=== PATIENT | male | born 2000 | race Caucasian/White ===

== ENCOUNTER 2023-08-26 14:32 | Emergency (ER) | payer MEDICAID, SELFPAY ==
[2023-08-26 14:34] VITALS: BP 118/75; PULSE 123; RESP 98; TEMP 37.6; O2SAT 96
[2023-08-26] MEDS: Ibuprofen 600 MG TAB PO (15:00)
--- NOTE | 2023-08-26 15:04 | ED.GENADUL_ITS ---
Discharge Plan Disposition Patient Disposition: Home Condition: Stable Discharge Details Clinical Impression: Viral illness Primary Care Provider: Shoaib Cornejo ED Provider: Kamala Ruggiero Home Meds and New Rx's Prescriptions: No Action ondansetron HCl 4 mg tablet 4 mg PO TID PRN5 Days Qty: 15 0RF Discharge Instructions Instructions: Acute Nausea and Vomiting (ED), Viral Syndrome (ED) Additional Instructions: Take the nausea medication as prescribed up to 3 times daily 20 minutes before eating or drinking anything. Keep yourself hydrated with small sips and push fl uids. Practice a bland diet including bananas rice apples toast. Stay away from anything fried fatty spicy or dairy. Strep swab was negative. At this time the COVID and flu swab are pending we will call you if they are positive. However usually symptoms treatment is the same. Please take Tylenol or Ibuprofen with food every 4-6 hours as needed for pain and swelling. Follow up with primary care provider in 3-5 days. Return to ED sooner if any worsening or concerns. Stand Alone Forms: Work Release Referrals: Shoaib Cornejo [Primary Care Provider] - 3 days Discharge Data Discharge Date/Time-TO BE ENTERED AT DEPARTURE: 08/26/23 15:59 HPI General Mode of arrival: ambulatory . Date/Time Provider Initiated Documentation: 08/26/23 14:33 . Limitations to Documentation: no limitations . Information obtained by: patient, RN notes reviewed and old records reviewed . HPI Narrative: 23-year-old male presents to the ER with a chief complaint of sore throat, lightheadedness headache and fever 100.9 and decreased appetite since Wednesday. He reports on Wednesday he threw up. Denies any diarrhea no abdominal pain reports body aches and back pain. Denies any dysuria. Has not taken any Tylenol or ibuprofen prior to arrival. He does present somewhat tachycardic with a pulse of 123. No significant past medical history. Related Data Home Medications Medication Instructions Recorded Confirmed ondansetron HCl 4 mg tablet 4 mg PO TID PRN 5 days #15 tabs 08/30/23 Previous Rx's Medication Instructions Recorded ondansetron HCl 4 mg tablet 4 mg PO TID PRN 5 days #15 tabs 08/30/23 Allergies Allergy/AdvReac Type Severity Reaction Status Date / Time No Known Allergies Allergy Unverified 08/30/23 18:02 General Stated Complaint: Nausea/Vomit/Diar MADONNA: 3 Review of Systems All systems reviewed & are unremarkable except as noted in HPI and below Constitutional Constitutional: Reports as per HPI, Reports body ache(s), Reports fever(s), Reports headache(s) and Reports poor appetite ENT Ears, Nose, Mouth, and Throat: Reports headache(s) Gastrointestinal Gastrointestinal: Denies abdominal pain, Reports nausea and Reports vomiting Neurologic Neurologic: Reports headache(s) Exam Narrative Exam Narrative: Constitutional: Alert and oriented x3. Appears stated age. Normal body habitus. Head: Normocephalic, no trauma. Eyes: Pupils PERRL, Red reflex noted, EOM's intact. Eyelids symmetrical without lesions, discharge, or swelling. ENT: Bilateral TM's WNL, External ear normal to inspection, no mastoid TTP, swelling, or erythema, Nasal turbinates WNL, no nasal discharge. Normal den tition, Posterior pharynx WNL, no exudate. Chest: RRR, Normal S1, S2, distal pulses intact. Resp: Lungs clear to auscultation bilaterally, no wheezes, rales, or rhonchi. Course Vital Signs Vital signs: Vital Signs Temperature 37.6 C 08/26/23 14:34 Pulse 123 H 08/26/23 14:34 Respiratory Rate 98 H 08/26/23 14:34 Blood Pressure 118/75 08/26/23 14:34 Pulse Oximetry 96 08/26/23 14:34 Temperature 37.6 C 08/26/23 14:34 Temperature Source Oral 08/26/23 14:34 Pulse 123 H 08/26/23 14:34 Respiratory Rate 98 H 08/26/23 14:34 Respiratory Effort Normal 08/26/23 14:39 Blood Pressure 118/75 08/26/23 14:34 Pulse Oximetry 96 08/26/23 14:34 Pain Level 5 08/26/23 14:34 Medical Decision Making 23-year-old male presents to the ER with a chief complaint of sore throat, lightheadedness headache and fever 100.9 and decreased appetite since Wednesday. He reports on Wednesday he threw up. Denies any diarrhea no abdominal pain reports body aches and back pain. Denies any dysuria. Has not taken any Tylenol or ibuprofen prior to arrival. He does present somewhat tachycardic with a pulse of 123. No significant past medical history. COVID swab and strep swab ordered. Ibuprofen and 4 mg Zofran ODT. Strep negative. Fluvid swab positive for influenza B. Instructed on symptomatic treatment. This text was generated using [employer] dictation system, please disregard any oddities of phrase or misspellings. Lab Data Lab results reviewed: Yes I reviewed the patient's lab results. Labs: 08/26/23 14:57 Pharynx Group A Streptococcus Culture - Final Laboratory Tests Range/Units 08/26/23 14:51 COVID-19 Source NASOPHARYNX SARS-CoV-2 (PCR) (Negative) Negative Influenza Type A (PCR) (Negative) Negative Influenza Type B (PCR) (Negative) Positive A RSV (PCR) (Negative) Negative Quality:SDOH Health Related Social Needs: No Data to Display PFSH All Active Problems (Updated 08/30/23 @ 21:02 by SALOME Marcus) Viral illness (Acute) Social History Smoking risk assessment performed?: No
[2023-08-26] MEDS: Ondansetron O.D.T. 4 MG TABEF PO (15:12)
[2023-08-26 15:50] LABS: COVID-19 PCR Negative (Negative); Influenza A PCR Negative (Negative); Influenza B PCR Positive (Negative); RSV PCR Negative (Negative)
[2023-08-26 15:51] LABS: Source NASOPHARYNX
[2023-08-26] MEDS: Ondansetron O.D.T. 4 MG TABEF, 3 TABS/BTL PO (15:57)
== END 2023-08-26 15:59 | disposition home or self-care (01) ==
PROVIDERS: Emergency Provider Registered Nurse Emergency; PCP Family Medicine
DX: B34.9 Viral infection, unspecified (principal); Z11.52 Encounter for screening for COVID-19
CPT/HCPCS: 87637; 87880; 99283; 87081

== ENCOUNTER 2023-08-30 17:56 | Emergency (ER) | payer MEDICAID, SELFPAY ==
[2023-08-30] VITALS (52 sets, daily range): BP systolic 100–118; BP diastolic 60–78; PULSE 86–110; RESP 7–37; TEMP 37.1–37.4; O2SAT 95–96
--- NOTE | 2023-08-30 17:45 | RT.EKG_ITS ---
APPROVED REPORT Exam: Resting ECG Reason for Exam: dizziness Patient Location: E HR:102 bpm ECG Measurements Heart Rate 102 AXIS WI 141 P 79 QRSd 83 QRS 41 QT 315 T 76 QTc 411 Conclusion Sinus tachycardia at a rate of 102 without acute ischemic change.
--- NOTE | 2023-08-30 18:27 | ED.GENADUL_ITS ---
Discharge Plan Disposition Patient Disposition: Home Discharge Details Clinical Impression: Viral illness Primary Care Provider: Shoaib Cornejo ED Provider: Joselin Ferrell Home Meds and New Rx's Prescriptions: New ondansetron HCl 4 mg tablet 4 mg PO TID PRN5 Days Qty: 15 0RF Discharge Instructions Instructions: Viral Syndrome (ED) Additional Instructions: By kids chewable Tylenol and ibuprofen and take 600 mg of ibuprofen and 500 mg of Tylenol, ibuprofen every 8 hours and Tylenol every 4 hours I recommend staying home from work until you are fever free for 24 hours You may take Zofran as needed for nausea and vomiting and return earlier should you have new or worsening complaints Stand Alone Forms: Work Release Referrals: Shoaib Cornejo [Primary Care Provider] - Discharge Data Discharge Date/Time-TO BE ENTERED AT DEPARTURE: 08/30/23 21:25 HPI General Date/Time Provider Initiated Documentation: 08/30/23 17:57 . HPI Narrative: This 23-year-old male presents with report of recent diagnosis of influenza on the , sick since Wednesday of this week. Now feeling like he might pass out whenever he stands and sore throat with lightheadedness. Denies any chest pain or shortness of breath. Related Data Home Medications Medication Instructions Recorded Confirmed ondansetron HCl 4 mg tablet 4 mg PO TID PRN 5 days #15 tabs 08/30/23 Previous Rx's Medication Instructions Recorded ondansetron HCl 4 mg tablet 4 mg PO TID PRN 5 days #15 tabs 08/30/23 Allergies Allergy/AdvReac Type Severity Reaction Status Date / Time No Known Allergies Allergy Unverified 08/30/23 18:02 General Stated Complaint: GenMedical MADONNA: 3 Exam Const General: cooperative, comfortable and no acute distress HENMT Other: Moist mucous membranes, uvula midline, oropharynx patent Eyes Other: Pupils equal round reactive to light and accommodation Neck Other: No meningismus Cardio Other: Sinus tachycardia GI Other: Nontender abdominal exam Skin Other: No rashes or lesions Neuro Other: Alert and oriented x 4 Course Vital Signs Vital signs: Vital Signs Temperature 37.2 C 08/30/23 17:59 Pulse 110 H 08/30/23 17:59 Respiratory Rate 18 08/30/23 17:59 Blood Pressure 118/78 08/30/23 17:59 Pulse Oximetry 96 08/30/23 17:59 Temperature 37.2 C 08/30/23 17:59 Pulse 110 H 08/30/23 17:59 Respiratory Rate 18 08/30/23 17:59 Blood Pressure 118/78 08/30/23 17:59 Pulse Oximetry 96 08/30/23 17:59 Medical Decision Making This 23-year-old male presenting with nausea, presyncopal symptoms, and sore throat for the past several days. Was diagnosed with influenza on the and tried to go into work today per patient. Alert and oriented with stable vitals other temp is 102 as patient does not tolerate pills and so has not been taking ibuprofen and Tylenol at home. On exam, patient is in no acute distress but appears generally unwell. Will order some diagnostic labs, review does not show evidence of acute abnormality. Will start ibuprofen and Tylenol and give 1 L of IV fluids and likely discharge home and encouraged to use chewable ibuprofen and Tylenol tablets with a work note. Quality:SDOH Health Related Social Needs: No Data to Display PFSH All Active Problems (Updated 08/30/23 @ 21:02 by SALOME Marcus) Viral illness (Acute) Social History Smoking risk assessment performed?: No
[2023-08-30] MEDS: Normal Saline 1,000 ML 1000 ML IV (18:41)
[2023-08-30] MEDS: Ketorolac 15 MG/ML VIAL IVP (18:42)
[2023-08-30 18:51] LABS: Abs Immature Grans 0.02 10^3/uL (0.0-0.06); HCT 41.6 % (40.0-50.0); HGB 14.8 g/dL (13.5-17.5); MCH 29.8 pg (27.0-33.0); MCHC 35.6 % (32.0-36.0); MCV 84 fL (80-95); MPV 9.7 fL (8.0-11.0); RBC 4.96 10^6/uL (4.36-5.78); RDW 11.9 % (11.8-14.1); RDW-SD 36.6 fL; WBC 4.29 10^3/uL (4.4-10.8)
[2023-08-30] MEDS: ACETAMINOPHEN 1,000 MG/100 ML BTL 400 MG IVPB (18:52)
[2023-08-30 19:02] LABS: Anion Gap 7.1 mmol/L (3-11); BUN 16 mg/dL (7-18); CO2 30.9 mmol/L (21.0-32.0); Calcium 8.3 mg/dL (8.5-10.1); Chloride 98 mmol/L (98-107); Estimated GFR 109.13 (mL/min/1.73m2); Glucose 102 mg/dL (74-106); Magnesium 2.1 mg/dL (1.8-2.4); Potassium 4.4 mmol/L (3.5-5.1); Sodium 136 mmol/L (136-145)
[2023-08-30 19:08] LABS: Platelet Count 107 10^3/uL (130-400)
[2023-08-30 19:09] LABS: Absolute Lymphocyte Count 1.03 10^3/uL (1.2-3.4); Absolute Monocyte Count 0.51 10^3/uL (0.1-0.8); Absolute Neutrophil Count 2.75 10^3/uL (1.2-6.7); Atypical Lymphocytes % 5; Diff Comment Manual Differential; RBC Morphology Normal
== END 2023-08-30 21:25 | disposition home or self-care (01) ==
PROVIDERS: Emergency Provider Physician Assistant; PCP Family Medicine
DX: B34.9 Viral infection, unspecified (principal)
CPT/HCPCS: 36415; 80048; 93005; 96361; 96365; 96375; 99284; 83735; 85025; 93010; J0131; J1885

== ENCOUNTER 2024-06-04 15:35 | Emergency (ER) | payer BC, SELFPAY ==
[2024-06-04 15:44] VITALS: BP 122/75; PULSE 88; RESP 14; TEMP 36.9; O2SAT 98
--- NOTE | 2024-06-04 16:00 | DI.RAD_ITS ---
Exam(s) XR SHOULDER LT COMPLETE 2+V EXAM: XR SHOULDER LT COMPLETE 2+V CLINICAL HISTORY: L shoulder pain along AC joint. TECHNIQUE: 2D digital imaging was performed. COMPARISON: No exams were available for comparison FINDINGS: Four views. No evidence of fracture or dislocation of the humeral head/glenohumeral joint. The subacromial space is not diminished. However, there is slight offset of the AC joint noted. There is no fracture of the acromium nor of the clavicle. IMPRESSION: Mild subluxation of the AC joint. Correlation with site of tenderness is recommended. No clavicle f racture. Glenohumeral joint appears unremarkable. DATA REPOSITORY: RADIATION DOSE DELIVERED:
--- NOTE | 2024-06-04 16:11 | ED.GENADUL_ITS ---
Discharge Plan Disposition Patient Disposition: Home Discharge Details Clinical Impression: Separation of left acromioclavicular joint Primary Care Provider: Francois José ED Provider: Mandi Burt Home Meds and New Rx's Prescriptions: No Action No Known Home Meds Discharge Instructions Instructions: shoulder Additional Instructions: Please call orthopedics Wednesday to schedule a follow up appointment for management of your AC joint separation. Wear your sling at all times when not in bed. Use ice for 15-20 minutes at a time every hour or so for swelling. Ibuprofen 600 mg every 8 hours or tylenol 650 mg every 6 hours may be used for discomfort as needed. Return to emergency care if you develop new arm numbness, color change to your arm/hand, severe pain, or if you aer very worried and need to be rechecked again immediately. Stand Alone Forms: Work Release Referrals: [facility] [Provider Group] HPI General Date/Time Provider Initiated Documentation: 06/04/24 15:55 . HPI Narrative: Zhang is a 24 y/o male who presents to the ED todday for evaluation of L shoulder pain. He reports he fell and landed on his L shoulder yesterday while snowboarding, has had consistent discomfort in the shoulder since then that is worsened with movement.He was wearing a helmet. Denies head injury, neck pain, back pain, chest pain, shortness of breath, distal numbness/tingling or weakness. No previous injury to this shoulder. He is R handed. Denies significant PMH. Physical exam remarkable for tenderness with palpation of AC joint. No obvious deformities, skin tears, ecchymosis, swelling. Pt is able to full flex and extend shoulder, negative empty can test. Sensation grossly intact, 5/5 muscle strength to arm. No color change to arm. Full painless ROM to neck. NO c-spine/t-spine/l-spine stepoffs, tenderness, or deformity. D/dx includes but is not limited to: AC joint separation, soft tissue injury, labral tear. Low suspicion for fracture or dislocation. I independently interpreted the following tests: L shoulder xray, notable for mild AC joint separation. This was confirmed by radiologist. While in the ED Zhang received ice for discomfort, declined ibuprofen or APAP. A sling was applied for immobilization. Reviewed discharge instructions with patient and his mother; a work note was provided. Educated on red flags indicating need for return to emergency care, light duty at work, abstaining from snowboarding until cleared by ortho. HE voices agreement with plan of care. Related Data Home Medications ?Medication ?Instructions ?Recorded ?Confirmed Unknown [No Known Home Meds] 10/07/23 06/04/24 Allergies Allergy/AdvReac Type Severity Reaction Status Date / Time No Known Allergies Allergy Unverified 06/04/24 15:49 General Stated Complaint: Orthopedic MADONNA: 4 Review of Systems Narrative: see HPI Exam Const General: cooperative, healthy appearing, comfortable, no acute distress, well developed and well groomed Nutritional Appearance: average body habitus and well nourished Orientation: alert and oriented x3 HENMT Head: normal to inspection, normocephalic and atraumatic Neck Neck: normal visual inspection and full ROM Chest Chest: normal inspection of the chest and normal palpation of entire chest wall Resp Effort & Inspection: normal respiratory effort and able to speak in complete sentences Auscultation: clear to auscultation bilaterally Cardio Rate: regular rate Rhythm: regular rhythm Pulses: radial pulses present Back/Spine/Pelvis Cervical Spine: normal cervical lordosis and cervical ROM normal Thoracic/Lumbar Spine: thoracic and lumbar spine normal to inspection Skin General skin exam: no rashes or lesions noted Neuro General: patient alert, patient oriented x3, gait normal, tone normal, moves all extremities and no focal motor deficits Cognition: normal cognition Speech: speech normal Sensory Exam: no sensory deficits noted Extrem Right upper extremity: normal to inspection Left upper extremity: normal to inspection, normal capillary refill and shoulder/upper arm Details: tenderness Location: of the A-C joint, axillary nerve sensory function normal and abnormal ROM (slightly decreased due to discomfort); no swelling, no abrasions, no lacerations, no ecchymosis, no crepitus, no penetrating wound, no deformity and no unsual warmth; no edema Course Vital Signs Vital signs: Vital Signs Temperature 36.9 C 06/04/24 15:44 Pulse 88 06/04/24 15:44 Respiratory Rate 14 06/04/24 15:44 Blood Pressure 122/75 06/04/24 15:44 Pulse Oximetry 98 06/04/24 15:44 Temperature 36.9 C 06/04/24 15:44 Temperature Source Oral 06/04/24 15:44 Pulse 88 06/04/24 15:44 Respiratory Rate 14 06/04/24 15:44 Blood Pressure 122/75 06/04/24 15:44 Blood Pressure Position Sitting 06/04/24 15:44 Pulse Oximetry 98 06/04/24 15:44 Oxygen Delivery Method Room Air 06/04/24 15:44 Oxygen Flow Rate 0 06/04/24 15:44 Pain Level 10 06/04/24 15:54 Comment Pain = 10 w/ movement per pt 06/04/24 15:44 Medical Decision Making Imaging Data Radiologic Study: Radiologist's impression: Exam(s) XR SHOULDER LT COMPLETE 2+V EXAM: XR SHOULDER LT COMPLETE 2+V CLINICAL HISTORY: L shoulder pain along AC joint. TECHNIQUE: 2D digital imaging was performed. COMPARISON: No exams were available for comparison FINDINGS: Four views. No evidence of fracture or dislocation of the humeral head/glenohumeral joint. The subacromial space is not diminished. However, there is slight offset of the AC joint noted. There is no fracture of the acromium nor of the clavicle. IMPRESSION: Mild subluxation of the AC joint. Correlation with site of tenderness is recommended. No clavicle fracture. Glenohumeral joint appears unremarkable. Quality:SDOH Health Related Social Needs: No Data to Display PFSH All Active Problems (Updated 06/04/24 @ 16:49 by Mandi Isbell) Separation of left acromioclavicular joint (Acute) No known health problems (Acute) Family History (Updated 09/17/23 @ 14:59 by Letty Roe RN) Mother Depression Father No problems noted. Maternal Grandmother Asthma Colon cancer Paternal Grandmother Asthma Social History (Updated 10/21/23 @ 15:44 by Roopa Anderson) Smoking/Tobacco Use Status: Never Smoking risk assessment performed?: Yes Alcohol Intake: never Drug use: Never Substance use type: does not use Adopted: No Caregiver/Support person: No Housing: house Communication Needs: None Education Level: high school Do you need help understanding health information?: Often current occupation: Op C at [employer] Sexually active: No Do you think of yourself as: straight/heterosexual Current gender identity: male What is your relationship status?: never How often do you talk on the phone with friends or family?: three or more times per week How often do you get together with friends or relatives?: once per week How often do you attend bahai or jehovah's witness services?: decline to answer Do you belong to any clubs or organized social groups?: no Panel score (0-1 are the most socially isolated patients): 1 What type of physical activity do you participate in: none Frequency: does not exercise Lia/Rastafari: None Special lia needs: No Seatbelt use: always Helmet use: Yes Helmet use: always Drive intox or ride w/intox truss driver helper: No Firearms in home: Yes Firearms unloaded and locked: Yes Do you feel safe at home: Yes
== END 2024-06-04 17:03 | disposition home or self-care (01) ==
PROVIDERS: Emergency Provider Nurse Practitioner Family; PCP Nurse Practitioner Family
DX: S43.102A Unspecified dislocation of left acromioclavicular joint, initial encounter (principal); W00.0XXA Fall on same level due to ice and snow, initial encounter; Y93.23 Activity, snow (alpine) (downhill) skiing, snowboarding, sledding, tobogganing and snow tubing
CPT/HCPCS: 99283; 73030

== ENCOUNTER 2024-06-20 15:25 | Outpatient (CLI) | payer BC, SELFPAY ==
--- NOTE | 2024-06-20 09:45 | DI.RAD_ITS ---
Exam(s) XR CLAVICLE LT EXAM: XR CLAVICLE LT CLINICAL HISTORY: F/U ACJ SEPARATION TECHNIQUE: 2D digital imaging was performed. Two views COMPARISON: CR XR SHOULDER LT COMPLETE 2+V from 06/04/2024 FINDINGS: BONES: No acute fracture is present. No bony destructive lesion is seen. JOINTS: AC joint is mildly widened. The distal clavicle projects slightly superior to the acromion. Similar to prior exam. SOFT TISSUE: Unremarkable. IMPRESSION: Stable widening of the AC joint. DATA REPOSITORY: RADIATION DOSE DELIVERED:
== END 2024-06-20 15:26 | disposition home or self-care (01) ==
LOC: DIORS 15:26
PROVIDERS: PCP Nurse Practitioner Family; Visit Provider Student in an Organized Health Care Education/Training Program
DX: S43.102D Unspecified dislocation of left acromioclavicular joint, subsequent encounter (principal); X58.XXXD Exposure to other specified factors, subsequent encounter
CPT/HCPCS: 73000

== ENCOUNTER 2024-08-15 11:22 | Outpatient (CLI) | payer BC, SELFPAY ==
--- NOTE | 2024-08-15 09:15 | DI.RAD_ITS ---
Exam(s) XR CLAVICLE LT EXAM: XR CLAVICLE LT CLINICAL HISTORY: F/U ACJ SEPARATION TECHNIQUE: 2D digital imaging was performed. Two views COMPARISON: CR XR SHOULDER LT COMPLETE 2+V from 06/04/2024 CR XR CLAVICLE LT from 06/20/2024 FINDINGS: BONES: No acute fracture is present. No bony destructive lesion is seen. JOINTS: Slight widening of the AC joint, unchanged from prior. Glenohumeral joint is unremarkable as visualized. SOFT TISSUE: Linear calcification of visible beneath the distal clavicle. IMPRESSION: Stable mild widening of the AC joint. DATA REPOSITORY: RADIATION DOSE DELIVERED:
== END 2024-08-15 11:23 | disposition home or self-care (01) ==
LOC: DIORS 11:22
PROVIDERS: PCP Nurse Practitioner Family; Visit Provider Student in an Organized Health Care Education/Training Program
DX: S43.102D Unspecified dislocation of left acromioclavicular joint, subsequent encounter (principal); X58.XXXD Exposure to other specified factors, subsequent encounter
CPT/HCPCS: 73000

== ENCOUNTER 2024-11-14 09:06 | Outpatient (CLI) | payer BC, SELFPAY ==
--- NOTE | 2024-11-14 08:45 | DI.RAD_ITS ---
Exam(s) XR CLAVICLE LT EXAM: XR CLAVICLE LT CLINICAL HISTORY: F/U ACJ SEPARATION. TECHNIQUE: 2D digital imaging was performed. COMPARISON: CR XR CLAVICLE LT from 08/15/2024 FINDINGS: Two views There is no evidence of left clavicle fracture. The appearance of the AC joint is unchanged. Minimal offset. No prominent separation. IMPRESSION: Stable mild widening of the left AC joint which appears unchanged from 08/15/2024. DATA REPOSITORY: RADIATION DOSE DELIVERED:
== END 2024-11-14 09:07 | disposition home or self-care (01) ==
LOC: DIORS 09:06
PROVIDERS: PCP Nurse Practitioner Family; Visit Provider Student in an Organized Health Care Education/Training Program
DX: S43.102A Unspecified dislocation of left acromioclavicular joint, initial encounter (principal)
CPT/HCPCS: 73000

== ENCOUNTER 2025-01-26 13:57 | Emergency (ER) | payer BC, SELFPAY ==
[2025-01-26] VITALS (25 sets, daily range): BP systolic 102–130; BP diastolic 52–89; PULSE 60–107; RESP 11–22; O2SAT 94–98
--- NOTE | 2025-01-26 14:30 | RT.EKG_ITS ---
APPROVED REPORT Exam: Resting ECG Reason for Exam: Near-syncope Patient Location: E HR:68 bpm ECG Measurements Heart Rate 68 AXIS TN 148 P 69 QRSd 100 QRS 54 QT 383 T 68 QTc 408 Conclusion Sinus rhythm, rate 68 No interval abnormalities No STEMI, CUONG pattern given age and similar appearance to priors
--- NOTE | 2025-01-26 14:37 | ED.GENADUL_ITS ---
Discharge Plan Disposition Patient Disposition: Home Condition: Stable Discharge Details Clinical Impression: Shakiness, Lightheadedness Primary Care Provider: Francois José ED Provider: Thalia Paez Home Meds and New Rx's Prescriptions: No Action No Known Home Meds Discharge Instructions Instructions: Dizziness, Adult ED Additional Instructions: You were seen in the emergency department today for evaluation of a near fainting episode with shakiness/twitching. In our department a full physical examination performed, had a reassuring EKG and normal laboratory studies, including a negative COVID and influenza test. You received IV fluids and medications for discomfort, and were observed in the emergency department. Your symptoms improved somewhat, and your vital signs stayed quite reassuring. At this time, it is unclear exactly what caused your symptoms, though a number of emergency conditions have been effectively ruled out. You need to follow-up with your primary care provider, take all of your medications as prescribed, and certainly can always return to care especially if you develop a fever, change in mental status, etc. Please follow-up with your primary care provider in the next few days to discuss this visit and any symptoms that change, worsen, or persist. Thank you for allowing us to be part of your care. Stand Alone Forms: Work Release HPI General Mode of arrival: ambulatory . Date/Time Provider Initiated Documentation: 01/26/25 14:01 . Limitations to Documentation: no limitations . Information obtained by: patient, family and old records reviewed . HPI Narrative: This is a 24-year-old male patient, previously healthy, presenting for evaluation of shakes and general malaise and near syncope. The patient reports he was in his normal state of health until this afternoon, when he began to feel very shaky and like he was burning up. He states that he was walking out to his truck, and felt like he was going to pass out, with lightheadedness. He did not lose consciousness and the sensation has since passed. He has occasional twitching/shaking of his body, states that this has happened in the past, feels similar to a panic attack though he states he has not had any upsetting events or recent stressors. He ate some [place] food earlier today, nothing out of the ordinary for him. States that he has not had any recent sick contacts, denies fever, runny or stuffy nose, sore throat, cough. Has a few broken teeth for which he has not yet sought dental care. Endorses no abdominal pain, nausea or vomiting, diarrhea, urinary symptoms such as dysuria. Related Data Home Medications ?Medication ?Instructions ?Recorded ?Confirmed Unknown [No Known Home Meds] 10/07/23 0 01/26/25 Allergies Allergy/AdvReac Type Severity Reaction Status Date / Time No Known Allergies Allergy Unverified 01/26/25 14:11 General Stated Complaint: GenMedical MADONNA: 3 Exam Narrative Exam Narrative: Gen: Awake and alert, in no apparent distress HEENT: Non-icteric sclera, PERRL, no conjunctival injection. The right lower lid has a small stye, without evidence of surrounding superinfection. Bilateral TMs clear, posterior pharynx without erythema, exudate, or swelling. Poor dentition with broken teeth appreciated, 2 most notably on the left upper aspect without evidence of periapical abscess Neck: Supple, full range of motion without meningismus Lungs: No apparent respiratory distress, normal respiratory effort. Lung sounds clear and equal bilaterally without wheezes, rhonchi, rales CV: Appears well perfused, heart with regular rate and rhythm, no murmurs auscultated Abdomen: Non-distended, soft, nontender without rigidity, rebound, or guarding MSK: Moves 4 extremities without apparent limitation in ROM Skin: Visualized skin without rashes, cyanosis. Neuro: Normal Gait, no obvious focal deficits or facial asymmetry. Speaks in full, clear sentences. Occasional tremors/jerking motions bilaterally Psych: Appropriate for situation. Course Vital Signs Vital signs: Vital Signs Pulse 83 01/26/25 14:09 Blood Pressure 130/89 01/26/25 14:09 Pulse Oximetry 94 01/26/25 14:09 Pulse 83 01/26/25 14:12 Blood Pressure 130/89 01/26/25 14:12 Pulse Oximetry 94 01/26/25 14:12 Medical Decision Making This is a 24-year-old male patient presenting for evaluation of near syncope, general malaise and shakiness. Differential includes but is not limited to infectious etiologies including viral upper respiratory infection, no shortness of breath, cough, or hypoxia concerning for pneumonia or bronchitis. The patient's dentition does not appear to be actively infected and I think is a l ess likely source of his symptoms. No reported symptoms suggestive of gastroenteritis, urinary tract infection. I did consider metabolic and electrolyte derangements, anemia, dehydration, kidney and liver disease. Considered arrhythmia, orthostasis and vasovagal symptoms. Finally, considered carpopedal spasms and sequelae of hyperventilation/panic disorder. We will obtain an EKG, Fluvid, and labs to include CBC, CMP, magnesium, and urinalysis. I will provide the patient with a liter of IV fluids and Tylenol IV given his reported history of difficulty swallowing medicines. - EKG reviewed by myself, showing no evidence of ischemia, interval abnormality, or ectopy. The patient does have a benign early repull pattern which is appropriate for his age and has been demonstrated on prior EKGs. I independently interpreted the laboratory studies, which show no significant leukocytosis, anemia, or thrombocytopenia. The chemistry panel is without evidence of electrolyte abnormality, kidney dysfunction, or liver injury. TSH within normal limits, urinalysis noninfectious, COVID and influenza screen negative. I reevaluated the patient and we observed him in the emergency department for some time, he remained hemodynamically appropriate with no changes in his vital signs or development of tachycardia or fever. His symptoms subsided significantly, we had an extended discussion regarding stressors and panic symptoms though the patient is not able to pinpoint any specific inciting event and panic disorder is not something that he has been diagnosed with before. I discussed at length the results of his testing today, and given the lack of diagnostic clarity did recommend that he follow-up with his primary care provider in the next few days to discuss this visit and any symptoms that change, worsen, or persist. I do not see any indication to proceed with further workup in the emergency department at this time, given his reassuring exam and benign evaluation to date. At this time, the patient has had a full medical evaluation and is safe for discharge to home. They are hemodynamically stable, ambulatory, and tolerating PO. They are understanding of the follow-up plan and return precautions. They left our facility without incident. Thalia Paez MD Medical Records Medical records reviewed: Yes I reviewed the patient's medical records. Lab Data Lab results reviewed: Yes I reviewed the patient's lab results. [facility] All Active Problems (Updated 01/26/25 @ 17:16 by Thalia Paez MD) Lightheadedness (Acute) Shakiness (Acute) No known health problems (Acute) Family History (Updated 09/17/23 @ 14:59 by Letty Roe RN) Mother Depression Father No problems noted. Maternal Grandmother Asthma Colon cancer Paternal Grandmother Asthma Social History (Updated 10/21/23 @ 15:44 by Roopa Anderson) Smoking/Tobacco Use Status: Never Smoking risk assessment performed?: Yes Alcohol Intake: never Drug use: Never Substance use type: does not use Adopted: No Caregiver/Support person: No Housing: house Communication Needs: None Education Level: high school Do you need help understanding health information?: Often current occupation: Op C at [employer] Sexually active: No Do you think of yourself as: straight/heterosexual Current gender identity: male What is your relationship status?: never How often do you talk on the phone with friends or family?: three or more times per week How often do you get together with friends or relatives?: once per week How often do you attend synagogue or amish services?: decline to answer Do you belong to any clubs or organized social groups?: no Panel score (0-1 are the most socially isolated patients): 1 What type of physical activity do you participate in: none Frequency: does not exercise Lia/Jewish: None Special lia needs: No Seatbelt use: always Helmet use: Yes Helmet use: always 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
[2025-01-26 15:12] LABS: Glucose Negative (Negative)
[2025-01-26] MEDS: ACETAMINOPHEN 1,000 MG/100 ML BAG 400 MG IVPB (15:30)
[2025-01-26] MEDS: Lactated Ringers 1,000 ML 1000 ML IV (15:31)
[2025-01-26 15:33] LABS: Abs Immature Grans 0.02 10^3/uL (0.0-0.06); HCT 42.0 % (40.0-50.0); HGB 14.8 g/dL (13.5-17.5); Immature Grans % 0.3 %; MCH 29.7 pg (27.0-33.0); MCHC 35.2 % (32.0-36.0); MCV 84 fL (80-95); MPV 9.2 fL (8.0-11.0); Platelet Count 254 10^3/uL (130-400); RBC 4.99 10^6/uL (4.36-5.78); RDW 11.9 % (11.8-14.1); RDW-SD 36.4 fL; WBC 6.72 10^3/uL (4.4-10.8)
[2025-01-26 15:53] LABS: ALT 19 U/L (16-63); AST 17 U/L (15-37); Albumin 4.2 g/dL (3.4-5.0); Alkaline Phosphatase 60 U/L (46-116); Anion Gap 7.7 mmol/L (3-11); BUN 9 mg/dL (7-18); Bilirubin, Total 0.4 mg/dL (0.2-1.0); CO2 29.3 mmol/L (21.0-32.0); Calcium 9.5 mg/dL (8.5-10.1); Chloride 106 mmol/L (98-107); Estimated GFR 96.74 (mL/min/1.73m2); Glucose 122 mg/dL (74-106); Magnesium 1.9 mg/dL (1.8-2.4); Potassium 4.0 mmol/L (3.5-5.1); Sodium 143 mmol/L (136-145); Total Protein 7.6 g/dL (6.4-8.2)
[2025-01-26 16:02] LABS: TSH (W/Ref FT4) 1.01 uIU/mL (0.36-3.74)
[2025-01-26 17:07] LABS: COVID-19 PCR Negative (Negative); RSV PCR Negative (Negative)
== END 2025-01-26 17:48 | disposition home or self-care (01) ==
PROVIDERS: Emergency Provider Emergency Medicine; PCP Nurse Practitioner Family
DX: R42 Dizziness and giddiness (principal); R25.1 Tremor, unspecified
CPT/HCPCS: 80053; 87637; 93005; 96361; 96374; 99284; 81003; 83735; 84443; 85025; 93010; 99283; J0131